=== PATIENT | male | born 1955 | race Caucasian/White ===

== ENCOUNTER 2017-05-28 09:31 | Emergency (ER) | payer OTHER ==
[~2017-05-28] VITALS: Ht 182.9 cm; Wt 117.9 kg
[~2017-05-28 09:31] MED LIST: APAP500 PO; IBUPROFEN 400400 M2 PO; NOHOMEMEDICATIONS; PEPCID40 MG PO
[2017-05-28 09:34] VITALS: BP 157/99
[2017-05-28] MEDS ORDERED: OSELB75 PO (09:43)
== END 2017-05-28 09:52 | disposition home or self-care (01) ==
LOC: ER 09:31
DX: R05 Cough (principal); R51 Headache; R50.9 Fever, unspecified; J11.1 Influenza due to unidentified influenza virus with other respiratory manifestations

== ENCOUNTER → 2020-04-29 | Outpatient (CLI) | payer OTHER ==
[~2020-04-29] MED LIST changes: +OSELB75 PO
== END ==
LOC: LAB 11:06
PROVIDERS: ATTEND Family Medicine
DX: Z20.828 Contact with and (suspected) exposure to other viral communicable diseases (principal)